=== PATIENT | female | born 1995 | race Caucasian/White ===

== ENCOUNTER → 2020-08-07 12:20 | Outpatient (BNVA) | payer SELFPAY | PROVIDERS: Family Provider Family Medicine; PCP Family Medicine; Visit Provider Nurse Practitioner | DX: J02.9 Acute pharyngitis, unspecified (principal) | CPT/HCPCS: 87071; 87880 ==

== ENCOUNTER → 2020-09-12 14:01 | Outpatient (BNVA) | payer SELFPAY | PROVIDERS: Family Provider Family Medicine; PCP Family Medicine; Visit Provider Family Medicine | DX: F41.9 Anxiety disorder, unspecified (principal); F32.9 Major depressive disorder, single episode, unspecified; Z87.891 Personal history of nicotine dependence | CPT/HCPCS: 80053; 84443; 85025 ==

== ENCOUNTER 2020-10-12 19:13 | Emergency (ER) | payer SELFPAY ==
[2020-10-12 19:42] VITALS: BP 114/72; PULSE 82; RESP 18; TEMP 36.2; O2SAT 98; BMI 21.9
[2020-10-12 20:16] LABS: Add Urine Microscopic? YES; Bilirubin Urine Neg (Negative); Blood Urine 2+ (Negative); Glucose Urine UA Norm (Normal); Ketones Urine Negative (Negative); Leukocyte Esterase Urine 2+ (Negative); Nitrate Urine Negative (Negative); Protein Urine Neg (Negative); Urine Color Yellow (Yellow); Urobilinogen Urine Norm (Negative); pH Urine 6 (5-7)
[2020-10-12 20:18] LABS: Add Urine Culture? Yes; Bacteria Urine TRACE /hpf; WBC Urine >100 /hpf (0-5)
[2020-10-12 21:07] VITALS: BP 121/71; PULSE 85; RESP 16; O2SAT 99
[2020-10-12 21:28] LABS: HCG Qualitative Urine. Negative (Negative)
[2020-10-12] MEDS: cefTRIAXone 1,000 MG in sodium chloride 0.9% (plus) 50 ML 100 MG IV (21:28)
--- NOTE | 2020-10-12 21:29 | CTR_ITS ---
PROCEDURE INFORMATION: Exam: CT Abdomen And Pelvis With Contrast Exam date and time: 10/12/2020 9:34 PM Age: 25 years old Clinical indication: Abdominal pain; Localized; Right lower quadrant (rlq); Patient HX: C/O rlq pain x 3 days; Additional info: Rlq tenderness. H/o UTI. R/O appy TECHNIQUE: Imaging protocol: Computed tomography of the abdomen and pelvis with contrast. Radiation optimization: All CT scans at this facility use at least one of these dose optimization techniques: automated exposure control; mA and/or kV adjustment per patient size (includes targeted exams where dose is matched to clinical indication); or iterative reconstruction. Contrast material: OMNI 300; Contrast volume: 95 ml; Contrast route: INTRAVENOUS (IV); COMPARISON: CT abdomen pelvis w con* [id number] 07/01/2015 10:08 AM RADIATION DOSE METRICS: Total DLP (mGy-cm): 953.73 FINDINGS: Lungs: The lung bases are clear. Liver: Unremarkable. Gallbladder and bile ducts: No visible gallstones by CT. No biliary tree dilation. Pancreas: Unremarkable. Spleen: Unremarkable. Adrenal glands: Unremarkable. Kidneys and ureters: Borderline prominence of the right renal pelvis and ureter. Mild wall thickening in the right renal pelvis and right ureter. Subtle 15 mm area of poor/decreased enhancement in the lower right kidney. While nonspecific, the above findings are suspicious for right pyelonephritis. Please correlate clinically. No perinephric fluid. No visible renal or ureteral calculus. The left kidney appears essentially unremarkable. Stomach and bowel: There are no CT findings to strongly suggest diverticulitis. Appendix: The appendix is upper limit of normal in size with diameter of up to about 6 mm. Probably no significant surrounding inflammatory changes to strongly suggest appendicitis at this time. If appendicitis remains in the differential diagnosis, follow-up scanning may be useful, as clinically directed. Appropriate clinical follow up warranted. Intraperitoneal space: No free air, ascites, or significant bowel distention. Vasculature: No evidence for abdominal aortic aneurysm. Lymph nodes: No retroperitoneal adenopathy. Urinary bladder: Suspect mild to moderate diffuse urinary bladder wall thickening. Evaluation is somewhat limited, as the bladder is not well distended. While nonspecific, this could indicate evidence for cystitis. Please correlate clinically. No visible calculus in the urinary bladder. Reproductive: The right ovary contains a 20 mm dominant follicle versus small cyst. Significance uncertain/unlikely due to relatively small small size. Small amount of cul-de-sac fluid. Bones/joints: No significant acute finding. Soft tissues: No significant acute finding. CT/CT abdomen pelvis w con* [id number] IMPRESSION: 1. Findings suspicious for right pyelonephritis, see above discussion. 2. Suspected urinary bladder wall thickening, possibly secondary to cystitis. 3. Borderline size of the appendix, please see detailed discussion above. 4. The right ovary contains a 20 mm dominant follicle versus small cyst. Significance uncertain/unlikely due to relatively small small size. Small amount of cul-de-sac fluid. 5. Other findings discussed above. Radiation Dose CTDIVOL = (mGy): DLP = 953.73 (mGy-cm)
[2020-10-12] MEDS: iohexol 300 mg/mL 100 mL Btl IV (21:46)
[2020-10-12 21:57] LABS: Basophils % 0.4 %; Eosinophils # 0.2 10^3/uL (0.0-0.8); Eosinophils % 2.4 %; Hematocrit 38.2 % (37.0-47.0); Hemoglobin 12.5 g/dL (11.5-15.3); Lymphocytes # 2.9 10^3/uL (0.8-4.8); Lymphocytes % 30.9 %; Mean Corpuscular HGB Conc 32.7 g/dL (30.0-36.0); Mean Corpuscular Hemoglobin 31.6 pg (28.0-34.0); Mean Corpuscular Volume 96.5 fL (81-99); Mean Platelet Volume 10.8 fL (7.4-10.4); Monocytes # 0.8 10^3/uL (0.2-0.9); Monocytes % 8.4 %; Neutrophils # 5.46 10^3/uL (1.8-7.7); Neutrophils % 57.6 %; Nucleated Red Blood Cells % 0 %; Platelet Count 192 10^3/cmm (130-400); Red Blood Count 3.96 10^6/uL (4.1-5.3); Red Cell Distribution Width 12.3 % (12.1-15.1); White Blood Count 9.5 10^3/uL (4.0-10.0)
[2020-10-12] MEDS: sodium chloride 0.9% 1,000 ML 999 ML IV (22:01)
[2020-10-12 22:03] VITALS: BP 111/44; PULSE 73; RESP 16; O2SAT 97
[2020-10-12 22:18] LABS: Lactate (Lactic Acid level) 0.7 mmol/L (0.5-2.2)
[2020-10-12 22:19] LABS: Alanine Aminotransferase 14 U/L (0-33); Albumin Level 3.9 g/dL (3.5-5.2); Alkaline Phosphatase 92 IU/L (35-105); Anion Gap 13.8 (5-19); Aspartate Amino Transferase 15 U/L (0-32); Blood Urea Nitrogen 11 mg/dL (6-20); Calcium 8.4 mg/dL (8.5-10.5); Carbon Dioxide 23 mmol/L (22-29); Chloride 103 mmol/L (98-107); Glomerular Filtration Rate 151.6 mL/min (90-130); Glucose 83 mg/dL (65-115); Lipase 33 U/L (13-60); Osmolality Calculated 281 mOsm/kg (285-295); Potassium 3.8 mmol/L (3.5-5.1); Sodium 136 mmol/L (136-145); Total Bilirubin 0.2 mg/dL (0.15-1.2); Total Protein 6.9 g/dL (6.6-8.7)
--- NOTE | 2020-10-12 22:43 | W.ED.ABDPA2 ---
HPI - Abdominal Pain General: Chief Complaint: Abdominal Pain Stated Complaint: RLQ ABD PAIN Time Seen by Provider: 10/12/20 20:51 History of Present Illness: HPI narrative: The patient is a 25-year-old female with past medical history UTIs who comes to the ER complaining of suprapubic and right lower quadrant pain as well as some mild right flank pain. Its been giving her pain for the past 4 days and continues to worsen and she is worried because this is the worst pain that she has had with a urinary tract infection and is worried it could be her appendix. Denies fevers. Admits urinary symptoms MD elicited complaint: abdominal pain Pertinent past history: past UTI Onset (ago): day(s) (4) Pain Consistency: constant Location: None Severity: moderate Radiation: R flank Migration to: R flank Relieving factors: nothing Associated Symptoms: Reports dysuria; Denies GI cramping and diarrhea Related Data: Date of Last Menstrual Period: 09/13/20 Review of Systems General: Reports: 10 or more systems reviewed and unremarkable except in HPI and below Const: Denies: fatigue Eyes: Denies: change in vision, blurry vision or eye redness ENMT: Denies: throat pain, swelling of lips/tongue, ear or mastoid pain or nasal congestion Card: Denies: chest pain, palpitations, irregular heart rhythm, edema, dyspnea on exertion or orthopnea Resp: Denies: dyspnea, productive cough or non-productive cough GI: Reports: abdominal pain; Denies: diarrhea or GI cramping : Reports: flank pain, dysuria and urinary frequency Musc: Denies: neck pain, back pain, extremity pain, joint pain, joint redness, limited range of motion or muscle weakness Skin/Breast: Denies: rash, pruritus, erythema, skin pain or skin tenderness Neuro: Denies: headache(s), numbness in extremities, weakness in extremities, sensory changes, difficulty walking, dizziness, confusion or Slurred speech present Psych: Denies: anxiety or depression Endo: Denies: polyuria All/Imm: Denies: urticaria, throat swelling or tongue swelling PFSH ED PFSH: Medical History Anxiety and depression Surgical History No pertinent past surgical history Family History Other CAD (coronary artery disease) Cancer Diabetes Social History Smoking and tobacco status: former smoker Alcohol intake: current Alcohol intake frequency: 3 or more drinks per day Alcohol type: wine Female Reproductive History: Date of last menstrual period: 09/13/20 Physical Exam Const: COMMON NORMALS: no acute distress, average body habitus, patient oriented x3, no limitations, healthy appearing, alert and well nourished GENERAL APPEARANCE: cooperative, comfortable, well kempt and well developed ORIENTATION/CONSCIOUSNESS: Yes awake, Yes oriented to person, Yes oriented to place and Yes oriented to time HENMT: COMMON NORMALS: normocephalic, external ears normal and Normal external nose present HEAD & SCALP: normal to inspection and normocephalic NOSE: Normal external nose present EXTERNAL EAR: Yes external ears normal MOUTH: Normal oral and palatal mucosa present THROAT: posterior oropharynx normal Eye: COMMON NORMALS: Equal, round and reactive pupils present and EOMs intact bilaterally GENERAL EYE: appearance normal, both eyes and all related structures PUPIL: Yes Equal, round and reactive pupils present Neck/C-Spine: COMMON NORMALS: full ROM, no lymphadenopathy, no meningeal signs and no JVD GENERAL: Yes normal visual inspection Lymph: LYMPHATIC: no lymphadenopathy noted Chest: COMMONS NORMALS: normal inspection of the chest and normal palpation of entire chest wall Resp: COMMON NORMALS: normal respiratory effort, No retractions, No use of accessory muscles, clear to auscultation bilaterally and percussion normal EFFORT & INSPECTION: Yes able to speak in complete sentences AUSCULTATION: clear to auscultation bilaterally PERCUSSION: percussion normal Cardio: COMMON NORMALS: no JVD, regular rate, regular rhythm, S1 normal heart sound present, S2 normal heart sound present and Peripheral pulses 2+ throughout RATE: regular rate RHYTHM: regular rhythm HEART SOUNDS: S1 normal heart sound present and S2 normal heart sound present PERIPHERAL PULSES: Peripheral pulses 2+ throughout GI: COMMON NORMALS: Normal to inspection, nondistended, normoactive bowel sounds present, Soft to palpation and no masses INSPECTION: Yes normal to inspection PALPATION: Yes Soft to palpation and Yes Tenderness to palpation present (GI) GI image (female): 1. Suprapubic and right lower quadrant tenderness radiating to her right flank. Soft. No rebound tenderness. : BLADDER/KIDNEY EXAM: Yes CVA tenderness on the right Back/Pelvis: COMMON NORMALS: thoracic and lumbar spine normal to inspection, no thoracic nor lumbar tenderness and thoraco-lumbar ROM normal Extremity: COMMON NORMALS: normal to inspection, full ROM, capillary refill normal, no joint enlargement and no pedal edema GENERAL: Yes normal exam except as noted Neuro: COMMON NORMALS: patient oriented x3, CN's II-XII intact bilaterally, moves all extremities, no focal motor deficits, no sensory deficits noted and gait normal SENSORIUM/ORIENTATION: Yes alert, Yes oriented to person, Yes oriented to place and Yes oriented to time MENINGEAL SIGNS: Yes no meningeal signs Psych: COMMON NORMALS: mental status grossly normal, Normal thought process present, cooperative, normal affect and speech normal APPEARANCE: Yes well kempt ATTITUDE: Yes calm SPEECH: Yes normal speech THOUGHT PROCESS: Normal thought process present Skin: COMMON NORMALS: no rashes or lesions noted GENERAL SKIN EXAM: no rashes or lesions noted Course Vital Signs: Vital signs: Vital Signs Temperature 97.1 F L 10/12/20 19:42 Pulse Rate 73 10/12/20 22:03 Respiratory Rate 16 10/12/20 22:03 Blood Pressure 111/44 10/12/20 22:03 Pulse Oximetry 97 10/12/20 22:03 MDM - Abdominal Pain MDM Narrative: Medical decision making narrative: The patient's urine has lots of white blood cells which are consistent with her symptoms of a urinary tract infection and likely pyelonephritis. CT shows Rhys and cystitis which is also consistent with her symptoms. It comments that her appendix while not acutely inflamed is large in size and recommends repeat imaging if she continues to have pain. She was given IV ceftriaxone and IV fluids as well as discharged with Keflex for 14 days. She is instructed to return to the ER if her symptoms worsen or do not get better as she may need a another CT to reevaluate her appendix.. Primary care physician in a couple days to monitor improvement of her symptoms Lab Data: Labs: Lab Results 10/12/20 10/12/20 10/12/20 Range/Units 20:00 20:00 20:00 WBC (4.0-10.0) 10^3/ uL RBC (4.1-5.3) 10^6/u L Hgb (11.5-15.3) g/dL Hct (37.0-47.0) % MCV (81-99) fL MCH (28.0-34.0) pg MCHC (30.0-36.0) g/dL RDW (12.1-15.1) % Plt Count (130-400) 10^3/c mm MPV (7.4-10.4) fL Neut % (Auto) % Lymph % (Auto) % Walton % (Auto) % Eos % (Auto) % Baso % (Auto) % Neut # (Auto) (1.8-7.7) 10^3/u L Lymph # (Auto) (0.8-4.8) 10^3/u L Walton # (Auto) (0.2-0.9) 10^3/u L Eos # (Auto) (0.0-0.8) 10^3/u L Baso # (Auto) (0.0-0.1) 10^3/u L Nucleated RBC % (a uto) % Nucleated RBCs # /100WBC Sodium (136-145) mmol/L Potassium (3.5-5.1) mmol/L Chloride (98-107) mmol/L Carbon Dioxide (22-29) mmol/L Anion Gap (5-19) BUN (6-20) mg/dL Creatinine (0.5-0.9) mg/dL GFR Calculation (90-130) mL/min Glucose (65-115) mg/dL Calculated Osmolal ity (285-295) mOsm/k g Lactate (0.5-2.2) mmol/L Calcium (8.5-10.5) mg/dL Total Bilirubin (0.15-1.2) mg/dL AST (0-32) U/L ALT (0-33) U/L Alkaline Phosphata se (35-105) IU/L Total Protein (6.6-8.7) g/dL Albumin (3.5-5.2) g/dL Globulin (1.3-4.6) g/dL Lipase (13-60) U/L HCG, Qual Negative (Negative) Urine Color Yellow (Yellow) Urine Appearance Sl cloudy A (CLEAR) Urine pH 6 (5-7) Ur Specific Gravit y 1.010 (1.005-1.030) Urine Protein Neg (Negative) Urine Glucose (UA) Norm (Normal) Urine Ketones Negative (Negative) Urine Blood 2+ H (Negative) Urine Nitrate Negative (Negative) Urine Bilirubin Neg (Negative) Urine Urobilinogen Norm (Negative) mg/dL Ur Leukocyte Netta ase 2+ H (Negative) Urine RBC 5-10 H (0-2) /hpf Urine WBC >100 H (0-5) /hpf Ur Squamous Epith Cells 5-10 H (0-5) /hpf Amorphous Sediment Not Reportable Urine Bacteria Trace (NONE) /hpf Urine HCG, Qual Negative (Negative) 10/12/20 10/12/20 10/12/20 Range/Units 21:28 21:28 21:28 WBC 9.5 (4.0-10.0) 10^3/ uL RBC 3.96 L (4.1-5.3) 10^6/u L Hgb 12.5 (11.5-15.3) g/dL Hct 38.2 (37.0-47.0) % MCV 96.5 (81-99) fL MCH 31.6 (28.0-34.0) pg MCHC 32.7 (30.0-36.0) g/dL RDW 12.3 (12.1-15.1) % Plt Count 192 (130-400) 10^3/c mm MPV 10.8 H (7.4-10.4) fL Neut % (Auto) 57.6 % Lymph % (Auto) 30.9 % Walton % (Auto) 8.4 % Eos % (Auto) 2.4 % Baso % (Auto) 0.4 % Neut # (Auto) 5.46 (1.8-7.7) 10^3/u L Lymph # (Auto) 2.9 (0.8-4.8) 10^3/u L Walton # (Auto) 0.8 (0.2-0.9) 10^3/u L Eos # (Auto) 0.2 (0.0-0.8) 10^3/u L Baso # (Auto) 0.0 (0.0-0.1) 10^3/u L Nucleated RBC % (a uto) 0 % Nucleated RBCs # 0.0 /100WBC Sodium 136 (136-145) mmol/L Potassium 3.8 (3.5-5.1) mmol/L Chloride 103 (98-107) mmol/L Carbon Dioxide 23 (22-29) mmol/L Anion Gap 13.8 (5-19) BUN 11 (6-20) mg/dL Creatinine 0.5 (0.5-0.9) mg/dL GFR Calculation 151.6 H (90-130) mL/min Glucose 83 (65-115) mg/dL Calculated Osmolal ity 281 L (285-295) mOsm/k g Lactate 0.7 (0.5-2.2) mmol/L Calcium 8.4 L (8.5-10.5) mg/dL Total Bilirubin 0.2 (0.15-1.2) mg/dL AST 15 (0-32) U/L ALT 14 (0-33) U/L Alkaline Phosphata se 92 (35-105) IU/L Total Protein 6.9 (6.6-8.7) g/dL Albumin 3.9 (3.5-5.2) g/dL Globulin 3.0 (1.3-4.6) g/dL Lipase 33 (13-60) U/L HCG, Qual (Negative) Urine Color (Yellow) Urine Appearance (CLEAR) Urine pH (5-7) Ur Specific Gravit y (1.005-1.030) Urine Protein (Negative) Urine Glucose (UA) (Normal) Urine Ketones (Negative) Urine Blood (Negative) Urine Nitrate (Negative) Urine Bilirubin (Negative) Urine Urobilinogen (Negative) mg/dL Ur Leukocyte Netta ase (Negative) Urine RBC (0-2) /hpf Urine WBC (0-5) /hpf Ur Squamous Epith Cells (0-5) /hpf Amorphous Sediment Urine Bacteria (NONE) /hpf Urine HCG, Qual (Negative) Discharge Plan Discharge Patient Disposition: Home Clinical Impression: Pyelonephritis, UTI (urinary tract infection) Condition: Stable Prescriptions: New cephalexin 500 mg capsule 500 mg PO BID 14 Days Qty: 28 RF: 0 No Action sertraline [Zoloft] 25 mg tablet 25 mg PO DAILY Qty: 90 RF: 0 hydroxyzine HCl 25 mg tablet 25 mg PO .HS Qty: 30 RF: 0 Discharge Orders: Discharge ED (Routine); Ordered 10/12/20 Ordered By: Diony Muro Referrals: Christiane Byrne DO [Primary Care Provider] - Discharge Diet: Advance as tolerated Discharge Activity: Resume usual activity Patient Instructions: Acute Pyelonephritis (ED), Opioid Safety Activity Restrictions/Additional Instructions: You have a urinary tract infection that has started to track up to your right kidney and have a kidney infection as well. We have given you IV antibiotics and fluids in the ER to start treatment of this and we will discharge you with Keflex pills for 2 weeks. Please take them as directed and drink lots of fluids. The abdominal CT also mentions that your appendix is large in size. It is not inflamed however if your symptoms do not improve or they worsen please return to the ER and we will check you again for appendicitis. The antibiotic should start working quickly so your symptoms should begin to improve in the next day or 2 however if they do not return to the ER. Follow-up with your primary care physician in a couple days to monitor improvement of your symptoms Coding Level of Care Code ED Calibration Technician for Leonela Madrigal
[2020-10-12 22:56] VITALS: BP 119/67; PULSE 82; RESP 18; O2SAT 99
== END 2020-10-12 22:57 | disposition home or self-care (01) ==
PROVIDERS: Nurse Practitioner Family; Emergency Provider Family Medicine; PCP Family Medicine
DX: N39.0 Urinary tract infection, site not specified (principal); N12 Tubulo-interstitial nephritis, not specified as acute or chronic; Z87.891 Personal history of nicotine dependence
CPT/HCPCS: 74177; 80053; 81001; 81025; 83605; 83690; 85025; 87086; 96365; 99284; J0696; J7030; Q9967

== ENCOUNTER 2020-10-15 21:36 | Emergency (ER) | payer SELFPAY ==
[2020-10-15 21:40] VITALS: BP 138/75; PULSE 78; PULSE 90; RESP 18; TEMP 36.8; O2SAT 99; BMI 21.2
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
[2020-10-15 22:00] VITALS: BP 119/67; PULSE 73; O2SAT 98
[2020-10-15 22:13] VITALS: RESP 18; O2SAT 96
[2020-10-15] MEDS: morphine 4 mg/mL SDV 1 mL IVP (22:13)
[2020-10-15] MEDS: ondansetron 2 mg/ML SDV 2 mL 4 MG IVP (22:13)
[2020-10-15] MEDS: sodium chloride 0.9% 1,000 ML 999 ML IV (22:13)
[2020-10-15 22:15] LABS: Basophils % 0.3 %; Eosinophils # 0.3 10^3/uL (0.0-0.8); Eosinophils % 3.5 %; Hematocrit 40.8 % (37.0-47.0); Hemoglobin 13.2 g/dL (11.5-15.3); Lymphocytes # 2.6 10^3/uL (0.8-4.8); Lymphocytes % 34.7 %; Mean Corpuscular HGB Conc 32.4 g/dL (30.0-36.0); Mean Corpuscular Hemoglobin 31.1 pg (28.0-34.0); Mean Corpuscular Volume 96.2 fL (81-99); Mean Platelet Volume 10.5 fL (7.4-10.4); Monocytes # 0.6 10^3/uL (0.2-0.9); Neutrophils # 4.02 10^3/uL (1.8-7.7); Neutrophils % 53.2 %; Nucleated Red Blood Cells % 0 %; Platelet Count 230 10^3/cmm (130-400); Red Blood Count 4.24 10^6/uL (4.1-5.3); Red Cell Distribution Width 11.9 % (12.1-15.1); White Blood Count 7.5 10^3/uL (4.0-10.0)
[2020-10-15] MEDS: ciprofloxacin 400 MG/200 ML PREMIX 200 MG IV (22:29)
[2020-10-15 22:31] LABS: Alanine Aminotransferase 15 U/L (0-33); Albumin Level 4.1 g/dL (3.5-5.2); Alkaline Phosphatase 90 IU/L (35-105); Aspartate Amino Transferase 14 U/L (0-32); Blood Urea Nitrogen 12 mg/dL (6-20); Calcium 9.5 mg/dL (8.5-10.5); Carbon Dioxide 25 mmol/L (22-29); Chloride 103 mmol/L (98-107); Globulin 3.3 g/dL (1.3-4.6); Glomerular Filtration Rate 151.6 mL/min (90-130); Glucose 93 mg/dL (65-115); Lipase 41 U/L (13-60); Osmolality Calculated 285 mOsm/kg (285-295); Sodium 138 mmol/L (136-145); Total Bilirubin 0.2 mg/dL (0.15-1.2); Total Protein 7.4 g/dL (6.6-8.7)
[2020-10-15 22:38] LABS: HCG Qualitative Urine. Negative (Negative)
[2020-10-15 22:56] LABS: Add Urine Microscopic? NO; Charge for UA Resulting for Rev
[2020-10-15 22:57] LABS: Urine Appearance Clear (CLEAR); Urine Color Yellow (Yellow); pH Urine 5 (5-7)
[2020-10-15 22:58] LABS: Bilirubin Urine Neg (Negative); Blood Urine Neg (Negative); Glucose Urine UA Norm (Normal); Ketones Urine Negative (Negative); Leukocyte Esterase Urine Negative (Negative); Nitrate Urine Negative (Negative); Protein Urine Neg (Negative); Urobilinogen Urine Norm (Negative)
[2020-10-15 23:00] VITALS: BP 145/94; PULSE 68; O2SAT 98
--- NOTE | 2020-10-15 23:05 | CTR_ITS ---
PROCEDURE INFORMATION: Exam: CT Abdomen And Pelvis With Contrast Exam date and time: 10/15/2020 11:06 PM Age: 25 years old Clinical indication: Abdominal pain; Generalized; Patient HX: Worsening abd pain. Diagnosed with UTI and pyelonephritis earlier this week. TECHNIQUE: Imaging protocol: Computed tomography of the abdomen and pelvis with contrast. Radiation optimization: All CT scans at this facility use at least one of these dose optimization techniques: automated exposure control; mA and/or kV adjustment per patient size (includes targeted exams where dose is matched to clinical indication); or iterative reconstruction. Contrast material: OMNI 300; Contrast volume: 95 ml; Contrast route: INTRAVENOUS (IV); COMPARISON: CT abdomen pelvis w con* [id number] 10/12/2020 9:59 PM RADIATION DOSE METRICS: Total DLP (mGy-cm): 1007.26 FINDINGS: Liver: Normal. No mass. Gallbladder and bile ducts: Normal. No calcified stones. No ductal dilation. Pancreas: Normal. No ductal dilation. Spleen: Normal. No splenomegaly. Adrenal glands: Normal. No mass. Kidneys and ureters: Right-sided proximal collecting system urothelial enhancement is redemonstrated, but improved prior. No renal or perirenal abscess. Grossly unremarkable enhancement of the kidneys. Negative for hydronephrosis. Negative for renal stones. Stomach and bowel: Unremarkable. No obstruction. No mucosal thickening. Appendix: No evidence of appendicitis. Intraperitoneal space: Unremarkable. No free air. No significant fluid collection. Vasculature: Unremarkable. No abdominal aortic aneurysm. Lymph nodes: Unremarkable. No enlarged lymph nodes. Urinary bladder: Unremarkable as visualized. Reproductive: Unremarkable as visualized. Bones/joints: Unremarkable. No acute fracture. Soft tissues: Unremarkable. CT/CT abdomen pelvis w con* [id number] IMPRESSION: Mild residual increase in right proximal collecting system urothelial enhancement which may represent sequela of pyelonephritis. No complication seen. Improvement from prior. Radiation Dose CTDIVOL = (mGy): DLP = 1007.26 (mGy-cm)
[2020-10-15] MEDS: iohexol 300 mg/mL 100 mL Btl IV (23:20)
[2020-10-16] VITALS: BP 134/58; PULSE 65; O2SAT 98
== END 2020-10-16 00:45 | disposition home or self-care (01) ==
PROVIDERS: Emergency Provider Emergency Medicine; PCP Family Medicine
DX: N12 Tubulo-interstitial nephritis, not specified as acute or chronic (principal); Z87.891 Personal history of nicotine dependence
CPT/HCPCS: 74177; 80053; 81003; 81025; 83690; 85025; 96361; 96374; 96375; 99284; J0744; J2270; J2405; J7030; Q9967

== ENCOUNTER 2020-11-20 18:41 | Emergency (ER) | payer SELFPAY ==
[2020-11-20 18:56] VITALS: BP 118/76; PULSE 89; RESP 18; TEMP 36.3; O2SAT 98; BMI 22.5
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
[2020-11-20] MEDS: HYDROcodone-acetaminophen 7.5-325 mg Tablet 1 TAB PO (19:14)
[2020-11-20 19:44] VITALS: BP 111/71; PULSE 97; RESP 16; O2SAT 99
[2020-11-20 19:45] VITALS: BP 111/71; PULSE 87; RESP 16; O2SAT 99
== END 2020-11-20 19:49 | disposition home or self-care (01) ==
PROVIDERS: Emergency Provider Emergency Medicine; PCP Family Medicine
DX: S13.4XXA Sprain of ligaments of cervical spine, initial encounter (principal); V89.2XXA Person injured in unspecified motor-vehicle accident, traffic, initial encounter
CPT/HCPCS: 70450; 72125; 99283

== ENCOUNTER → 2020-12-25 15:23 | Outpatient (BNVA) | payer SELFPAY | PROVIDERS: PCP Family Medicine; Visit Provider Obstetrics & Gynecology | DX: Z12.4 Encounter for screening for malignant neoplasm of cervix (principal); N89.8 Other specified noninflammatory disorders of vagina; N92.6 Irregular menstruation, unspecified; N72 Inflammatory disease of cervix uteri; N39.0 Urinary tract infection, site not specified | CPT/HCPCS: 87481; 87512; 87798; 87799; 88175 ==

== ENCOUNTER 2021-01-12 21:29 | Inpatient (IN) | payer SELFPAY ==
[2021-01-12 21:41] VITALS: BP 114/57; PULSE 111; RESP 16; TEMP 36.6; O2SAT 95; BMI 23.5
--- NOTE | 2021-01-12 21:47 | ECG_ITS ---
[facility] Test Date: 2021-01-12 Pat Name: Tamela Ruff Department: Room: Gender: Female [employer] Spec[employer]: : 1995 Requested By: Frederick Huitron Order Number: [id number] Rasmussen MD: Cathleen Miller M.D. Measurements Intervals [place] Rate: 89 P: 80 RI: 167 QRS: 67 QRSD: 93 T: 32 QT: 342 QTc: 416 Interpretive Statements SINUS RHYTHM WITH SINUS ARRHYTHMIA POSSIBLE LEFT ATRIAL ENLARGEMENT [-0.1mV P WAVE IN V1/V2] POSSIBLE RIGHT VENTRICULAR CONDUCTION DELAY [RSR (QR) IN V1/V2] WARNING: DATA QUALITY MAY AFFECT INTERPRETATION No previous ECG available for comparison Electronically Signed On 01-13-2021 16:44:26 CDT by Cathleen Miller M.D. [id number]
--- NOTE | 2021-01-12 21:59 | ED_ITS ---
HPI - Psych General: Chief Complaint: Psychiatric Symptoms Stated Complaint: SI Time Seen by Provider: 01/12/21 21:48 History of Present Illness: HPI Narrative: 25-year-old female comes in today for complaints of worsening thoughts of suicide and mood swings. Patient reports since her grandfather had in June she has had more dark thoughts and thoughts of suicide. Patient was put on some sertraline 25 mg which helped some for patient to be able to sleep and start a routine sleep schedule. Patient had stopped the sertraline about 3 weeks ago after her prescription had ran out. Patient reports since then she has had more mood swings and more th oughts of suicide. Patient reports that she will feel very elevated in her mood then become very depressed and then have episodes of irritability and striking out other individuals. Patient does have a history of cutting in the past. Patient reports no specific plan for suicide but states that she would do what ever was available in order to hurt herself. Patient comes in [facility] seeking admission to the stress unit due to these thoughts of suicide and concern for injuring herself. Patient denies any drug use such as marijuana, methamphetamines, or heroin. Patient does occasionally smoke cigarettes and drink alcohol. Patient at this time is on antibiotics doxycycline and metronidazole for a female infection . Patient takes some One-A-Day vitamins. Patient also reports that she has happy with herself that she was able to get back on a more routine sleep schedule and has been trying to eat more healthy. complaint: suicidal ideation Onset (ago): week(s) Duration: intermittent and getting worse History of same: No Relieving factors: medication Exacerbating factors: none Context: not taking psychiatric medications Associated psychiatric symptoms: depression, suicidal ideation and racing thoughts Associated symptoms: Reports depression, suicidal ideation and racing thoughts Treatments prior to arrival: none If self harm: admits thoughts of self harm Review of Systems General: Reports: 10 or more systems reviewed and unremarkable except in HPI and below Psych: Reports: depression and suicidal ideation [facility] ED PFS: Medical History (Updated 01/12/21 @ 23:22 by MALENA Mckeon) Anxiety and depression Surgical History No pertinent past surgical history Family History (Updated 12/25/20 @ 14:26 by Analilia Clarke LPN) Family/Other Cancer Maternal Uncle Diabetes Maternal and Paternal aunts and uncles Mother Diabetes Father Diabetes Grandmother Diabetes Paternal Grandfather Diabetes Paternal Denies family history of CAD (coronary artery disease) Clotting disorder Hyperlipidemia Chronic kidney disease (CKD) Hypertension Thyroid disease Stroke Female Reproductive History: Date of last menstrual period: 11/13/20 Physical Exam Const: COMMON NORMALS: no acute distress and patient oriented x3 GENERAL APPEARANCE: cooperative HENMT: COMMON NORMALS: normocephalic, TM's normal bilaterally and Normal external nose present HEAD & SCALP: normal to inspection and normocephalic NOSE: Normal external nose present TYMPANIC MEMBRANE: TM's normal bilaterally MOUTH: Normal oral and palatal mucosa present THROAT: posterior oropharynx normal Eye: GENERAL EYE: appearance normal, both eyes and all related structures Neck/C-Spine: COMMON NORMALS: full ROM Lymph: LYMPHATIC: no lymphadenopathy noted Chest: COMMONS NORMALS: normal inspection of the chest Resp: COMMON NORMALS: normal respiratory effort EFFORT & INSPECTION: Yes able to speak in complete sentences Cardio: COMMON NORMALS: regular rate and regular rhythm RATE: regular rate RHYTHM: regular rhythm GI: COMMON NORMALS: non-tender : COMMON NORMALS: Yes no CVA tenderness BLADDER/KIDNEY EXAM: Yes no CVA tenderness Back/Pelvis: COMMON NORMALS: no CVA tenderness and thoracic and lumbar spine normal to inspection Extremity: COMMON NORMALS: normal to inspection Neuro: COMMON NORMALS: patient oriented x3 and moves all extremities Psych: COMMON NORMALS: cooperative Skin: COMMON NORMALS: no rashes or lesions noted GENERAL SKIN EXAM: no r ashes or lesions noted Course ED course: 11:20 PM, laboratory values are back and are normal. Contacted Dr. Olguin, psychiatrist, reviewed case with him he agreed to admission to neuropsychiatric unit for further evaluation and treatment. 11:30 PM, Dr. Huitron was consulted for admission orders to the neurops ychiatric unit. Vital Signs: Vital signs: Vital Signs Temperature 97.9 F 01/12/21 21:41 Pulse Rate 111 H 01/12/21 21:41 Respiratory Rate 16 01/12/21 21:41 Blood Pressure 114/57 01/12/21 21:41 Pulse Oximetry 95 01/12/21 21:41 MDM - Psych MDM Narrative: Medical decision making narrative: 25-year-old female comes in today for complaints of mood swings, and thoughts of suicide. On exam patient has no signs of significant abnormality. Patient is cooperative. Patient does report episodes of mood elevation and mood depression. Patient also reports episodes of irritability and anger. Patient has no specific plan for suicide although reports that time she feels more prone to hurt herself significantly. Differential diagnosis includes not limited to acute psychosis, major depressive disorder, suicidal ideation. Laboratory values were unremarkable. Patient was very cooperative. Patient agreed to admission to neuropsychiatric unit for suicidal ideation. Patient needs admission for further evaluation and treatment with medication or counseling. Patient was agreeable to admission. Lab Data: Labs: Lab Results 01/12/21 01/12/21 01/12/21 Range/Units 22:14 22:14 22:14 WBC (4.0-10.0) 10^3/ uL RBC (4.1-5.3) 10^6/u L Hgb (11.5-15.3) g/dL Hct (37.0-47.0) % MCV (81-99) fL MCH (28.0-34.0) pg MCHC (30.0-36.0) g/dL RDW (12.1-15.1) % Plt Count (130-400) 10^3/c mm MPV (7.4-10.4) fL Neut % (Auto) % Lymph % (Auto) % Russell % (Auto) % Eos % (Auto) % Baso % (Auto) % Neut # (Auto) (1.8-7.7) 10^3/u L Lymph # (Auto) (0.8-4.8) 10^3/u L Russell # (Auto) (0.2-0.9) 10^3/u L Eos # (Auto) (0.0-0.8) 10^3/u L Baso # (Auto) (0.0-0.1) 10^3/u L Nucleated RBC % (a uto) % Nucleated RBCs # /100WBC Sodium (136-145) mmol/L Potassium (3.5-5.1) mmol/L Chloride (98-107) mmol/L Carbon Dioxide (22-29) mmol/L Anion Gap (5-19) BUN (6-20) mg/dL Creatinine (0.5-0.9) mg/dL GFR Calculation (90-130) mL/min Glucose (65-115) mg/dL Calculated Osmolal ity (285-295) mOsm/k g Calcium (8.5-10.5) mg/dL Total Bilirubin (0.15-1.2) mg/dL AST (0-32) U/L ALT (0-33) U/L Alkaline Phosphata se (35-105) IU/L Total Protein (6.6-8.7) g/dL Albumin (3.5-5.2) g/dL Globulin (1.3-4.6) g/dL TSH (0.27-4.20) uIU/ mL HCG, Qual Negative (Negative) Urine Color Yellow (Yellow) Urine Appearance Clear (CLEAR) Urine pH 8 H (5-7) Ur Specific Gravit y 1.010 (1.005-1.030) Urine Protein Neg (Negative) Urine Glucose (UA) Norm (Normal) Urine Ketones Negative (Negative) Urine Blood Neg (Negative) Urine Nitrate Negative (Negative) Urine Bilirubin Neg (Negative) Prot Sulfosalicyli c Acd Negative (Negative) Urine Urobilinogen Norm (Negative) mg/dL Ur Leukocyte Netta ase Negative (Negative) Salicylates (3-10) mg/dL Urine Opiates Scre en Negative (Negative) ng/mL Acetaminophen (10-30) ug/mL Ur Barbiturates Sc reen Negative (Negative) ng/mL Ur Phencyclidine S crn Negative (Negative) ng/mL Ur Amphetamines Sc reen Negative (Negative) ng/mL U Benzodiazepines Scrn Negative (Negative) ng/mL Urine Cocaine Scre en Negative (Negative) ng/mL U Marijuana (THC) Screen Negative (Negative) ng/mL Ethyl Alcohol (0-10) mg/dL 01/12/21 01/12/21 Range/Units 22:30 22:30 WBC 9.9 (4.0-10.0) 10^3/ uL RBC 4.35 (4.1-5.3) 10^6/u L Hgb 13.5 (11.5-15.3) g/dL Hct 41.3 (37.0-47.0) % MCV 94.9 (81-99) fL MCH 31.0 (28.0-34.0) pg MCHC 32.7 (30.0-36.0) g/dL RDW 12.5 (12.1-15.1) % Plt Count 220 (130-400) 10^3/c mm MPV 10.4 (7.4-10.4) fL Neut % (Auto) 56.8 % Lymph % (Auto) 32.4 % Russell % (Auto) 7.9 % Eos % (Auto) 2.3 % Baso % (Auto) 0.4 % Neut # (Auto) 5.62 (1.8-7.7) 10^3/u L Lymph # (Auto) 3.2 (0.8-4.8) 10^3/u L Russell # (Auto) 0.8 (0.2-0.9) 10^3/u L Eos # (Auto) 0.2 (0.0-0.8) 10^3/u L Baso # (Auto) 0.0 (0.0-0.1) 10^3/u L Nucleated RBC % (a uto) 0 % Nucleated RBCs # 0.0 /100WBC Sodium 137 (136-145) mmol/L Potassium 3.6 (3.5-5.1) mmol/L Chloride 103 (98-107) mmol/L Carbon Dioxide 23 (22-29) mmol/L Anion Gap 14.6 (5-19) BUN 12 (6-20) mg/dL Creatinine 0.5 (0.5-0.9) mg/dL GFR Calculation 151.6 H (90-130) mL/min Glucose 95 (65-115) mg/dL Calculated Osmolal ity 284 L (285-295) mOsm/k g Calcium 9.3 (8.5-10.5) mg/dL Total Bilirubin 0.2 (0.15-1.2) mg/dL AST 18 (0-32) U/L ALT 14 (0-33) U/L Alkaline Phosphata se 81 (35-105) IU/L Total Protein 7.0 (6.6-8.7) g/dL Albumin 4.3 (3.5-5.2) g/dL Globulin 2.7 (1.3-4.6) g/dL TSH 5.34 H (0.27-4.20) uIU/ mL HCG, Qual (Negative) Urine Color (Yellow) Urine Appearance (CLEAR) Urine pH (5-7) Ur Specific Gravit y (1.005-1.030) Urine Protein (Negative) Urine Glucose (UA) (Normal) Urine Ketones (Negative) Urine Blood (Negative) Urine Nitrate (Negative) Urine Bilirubin (Negative) Prot Sulfosalicyli c Acd (Negative) Urine Urobilinogen (Negative) mg/dL Ur Leukocyte Netta ase (Negative) Salicylates < 0.3 L (3-10) mg/dL Urine Opiates Scre en (Negative) ng/mL Acetaminophen < 5.0 L (10-30) ug/mL Ur Barbiturates Sc reen (Negative) ng/mL Ur Phencyclidine S crn (Negative) ng/mL Ur Amphetamines Sc reen (Negative) ng/mL U Benzodiazepines Scrn (Negative) ng/mL Urine Cocaine Scre en (Negative) ng/mL U Marijuana (THC) Screen (Negative) ng/mL Ethyl Alcohol < 10 (0-10) mg/dL Discharge Plan Discharge Patient Disposition: Admitted As Inpatient Clinical Impression: Suicidal ideation Condition: Stable Coding Level of Care Code ED Cleaner Operator for Leonela Fwjeferson Exam Comprehensive
[2021-01-12 22:26] LABS: Add Urine Microscopic? NO; Charge for UA Resulting for Rev
[2021-01-12 22:31] LABS: Bilirubin Urine Neg (Negative); Blood Urine Neg (Negative); Glucose Urine UA Norm (Normal); Ketones Urine Negative (Negative); Leukocyte Esterase Urine Negative (Negative); Nitrate Urine Negative (Negative); Protein Urine Neg (Negative); Sulfosalicylic Acid Urine Negative (Negative); Urine Appearance Clear (CLEAR); Urine Color Yellow (Yellow); Urobilinogen Urine Norm (Negative); pH Urine 8 (5-7)
[2021-01-12 22:36] LABS: Amphetamines Screen Urine Negative (Negative); Barbiturates Screen Urine Negative (Negative); Benzodiazepines Screen Urine Negative (Negative); Cocaine Screen Urine Negative (Negative); Opiate Screen Urine Negative (Negative); PCP Screen Urine Negative (Negative); THC Screen Urine Negative (Negative)
[2021-01-12 22:44] LABS: Basophils % 0.4 %; Eosinophils # 0.2 10^3/uL (0.0-0.8); Eosinophils % 2.3 %; Hematocrit 41.3 % (37.0-47.0); Hemoglobin 13.5 g/dL (11.5-15.3); Lymphocytes # 3.2 10^3/uL (0.8-4.8); Lymphocytes % 32.4 %; Mean Corpuscular HGB Conc 32.7 g/dL (30.0-36.0); Mean Corpuscular Volume 94.9 fL (81-99); Mean Platelet Volume 10.4 fL (7.4-10.4); Monocytes # 0.8 10^3/uL (0.2-0.9); Monocytes % 7.9 %; Neutrophils # 5.62 10^3/uL (1.8-7.7); Neutrophils % 56.8 %; Nucleated Red Blood Cells % 0 %; Platelet Count 220 10^3/cmm (130-400); Red Blood Count 4.35 10^6/uL (4.1-5.3); Red Cell Distribution Width 12.5 % (12.1-15.1); White Blood Count 9.9 10^3/uL (4.0-10.0)
[2021-01-12 22:45] LABS: HCG Qualitative Urine. Negative (Negative)
[2021-01-12 23:13] LABS: Alanine Aminotransferase 14 U/L (0-33); Albumin Level 4.3 g/dL (3.5-5.2); Alkaline Phosphatase 81 IU/L (35-105); Anion Gap 14.6 (5-19); Aspartate Amino Transferase 18 U/L (0-32); Blood Urea Nitrogen 12 mg/dL (6-20); Calcium 9.3 mg/dL (8.5-10.5); Carbon Dioxide 23 mmol/L (22-29); Chloride 103 mmol/L (98-107); Globulin 2.7 g/dL (1.3-4.6); Glomerular Filtration Rate 151.6 mL/min (90-130); Glucose 95 mg/dL (65-115); Osmolality Calculated 284 mOsm/kg (285-295); Potassium 3.6 mmol/L (3.5-5.1); Sodium 137 mmol/L (136-145); Thyroid Stimulating Hormone 5.34 uIU/mL (0.27-4.20); Total Bilirubin 0.2 mg/dL (0.15-1.2)
[2021-01-12 23:16] LABS: Acetaminophen < 5.0 ug/mL (10-30); Alcohol Level < 10 mg/dL (0-10); Salicylate < 0.3 mg/dL (3-10)
[2021-01-12 23:56] VITALS: BP 111/77; PULSE 87; RESP 15; TEMP 37.1; O2SAT 97
[2021-01-13 00:11] VITALS: BP 112/76; PULSE 91; RESP 20; TEMP 36.5; O2SAT 98
[2021-01-13 06:00] VITALS: BP 103/66; PULSE 74; RESP 16; TEMP 36.6; O2SAT 99
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
[2021-01-13 14:00] VITALS: BP 94/58; PULSE 73; RESP 18; TEMP 36.2; O2SAT 96
[2021-01-13] MEDS: lamoTRIgine 25 mg Tablet PO (18:47)
[2021-01-13 19:45] VITALS: BP 110/63; PULSE 78; RESP 20; TEMP 36.6; O2SAT 99
[2021-01-14 06:00] VITALS: BP 101/60; PULSE 68; RESP 17; TEMP 37; O2SAT 97
[2021-01-14] MEDS: lamoTRIgine 25 mg Tablet PO (08:19)
[2021-01-14 14:00] VITALS: BP 101/66; PULSE 69; RESP 18; TEMP 36.8; O2SAT 98
--- NOTE | 2021-01-14 17:04 | P.PN_ITS ---
Subjective NPU Subjective: Interval history: Tamela presents today with more optimistic about getting better and feels that she already does feel improvement. Once again reviewed the medication and the dosing plan. Once again reviewed the risk for Perkins-Gary syndrome. We discussed evaluating her in the next 24 hours and consider discharge if she continues to demonstrate and feel significant improvement. Mental Status Exam MSE Comments: This is a slender white female in hospital scrubs with adequate grooming. Cooperative with exam in no acute distress. Speech is normal rate and volume. Mood described as feeling better, affect congruent. Thought process organized. Thought content: Patient denied homicidal or suicidal ideation, there were no delusions reported or noted, she denied auditory or visual hallucinations. Attention and concentration were intact and memory appeared reliable but none were formally tested. She is alert and oriented times 3. Insight judgment appear fair and impulse control appears limited, but improving. Vitals/I&O/Wt Last Vital Signs Temp 98.6 F 01/14/21 21:06 Pulse 88 01/14/21 21:06 Resp 20 H 01/14/21 21:06 BP 114/67 01/14/21 21:06 Pulse Ox 99 01/14/21 21:06 Data NPU : 01/12/21 22:30 01/12/21 22:30 A&P Additional A&P Information (1) Suicidal ideation: (2) Frequent UTI: (3) Irregular menses: (4) Dyspareunia: (5) Well woman exam: (6) Former smoker: (7) Anxiety and depression: (8) PTSD (post-traumatic stress disorder): Additional A&P Information This is a 25-year-old white female with a long history of trauma and possible personality disorder who presents endorsing being overwhelmed with dramatic mood swings, suicidality and open to a medication trial. 1. Continue current medication. 2. Continue every 15 minute checks for safety. 3. Encourage individual, group and milieu therapies. 4. Get connected with outpatient services Involuntary Hold Information 96 Hour Hold: 96 Hour Involuntary Admission: No Attestations NPU Medical Necessity Statement*: Inpatient hospitalization is medically necessary and the clinically appropriate intervention at this time. We will monitor medications and make changes as indicated. Likely length of stay 1-3 days. Coding Level of Care Code Acute Communication Engineer for Leonela Madrigal
[2021-01-14 21:06] VITALS: BP 114/67; PULSE 88; RESP 20; TEMP 37; O2SAT 99
[2021-01-15 06:00] VITALS: BP 105/63; PULSE 78; RESP 18; TEMP 36.6; O2SAT 99
[2021-01-15] MEDS: lamoTRIgine 25 mg Tablet PO (07:59)
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
[2021-01-15 11:20] VITALS: BP 105/63; PULSE 78; RESP 18; TEMP 36.6; O2SAT 99
--- NOTE | 2021-01-15 11:23 | PC.NURSE ---
discharge medication Lamictal 100 mg po Daily Qty #30 refill x1 called into [facility] employee pharmacy per Dr. Olguin request. spoke to Aniya the pharmacist
== END 2021-01-15 13:43 | disposition home or self-care (01) | DRG 881 ==
LOC: ER 23:22 → NP 23:42
PROVIDERS: Emergency Medicine; Admitting Provider Psychiatry & Neurology Psychiatry; Emergency Provider Nurse Practitioner Family; PCP Family Medicine; Visit Provider Psychiatry & Neurology Psychiatry
DX: F32.9 Major depressive disorder, single episode, unspecified (principal); R45.851 Suicidal ideations; F41.9 Anxiety disorder, unspecified; F43.10 Post-traumatic stress disorder, unspecified; F17.210 Nicotine dependence, cigarettes, uncomplicated; Z87.440 Personal history of urinary (tract) infections; Z91.5 Personal history of self-harm; Z91.410 Personal history of adult physical and sexual abuse; Z63.8 Other specified problems related to primary support group; Z62.820 Parent-biological child conflict; Z72.89 Other problems related to lifestyle; Z79.2 Long term (current) use of antibiotics
CPT/HCPCS: 80053; 80306; 80307; 81003; 81025; 84443; 85025; 93005; 99285

== ENCOUNTER → 2022-02-26 14:00 | Outpatient (BNVA) | payer SELFPAY | PROVIDERS: PCP Family Medicine; Visit Provider Nurse Practitioner Women's Health | DX: N92.6 Irregular menstruation, unspecified (principal) | CPT/HCPCS: 81025 ==

== ENCOUNTER → 2022-03-09 16:37 | Outpatient (BNVA) | payer SELFPAY | PROVIDERS: PCP Family Medicine; Visit Provider Obstetrics & Gynecology | DX: Z36.87 Encounter for antenatal screening for uncertain dates (principal) | CPT/HCPCS: 76817; 84702 ==

== ENCOUNTER 2022-03-10 21:03 | Emergency (ER) | payer SELFPAY ==
[2022-03-10 23:10] VITALS: BP 112/71; PULSE 77; RESP 16; TEMP 36.8; O2SAT 98; BMI 20.8
== END 2022-03-11 01:54 | disposition left against medical advice (07) ==
LOC: ER 21:06
PROVIDERS: Emergency Provider Family Medicine; PCP Family Medicine
DX: Z53.21 Procedure and treatment not carried out due to patient leaving prior to being seen by health care provider (principal); O26.851 Spotting complicating pregnancy, first trimester; Z3A.01 Less than 8 weeks gestation of pregnancy

== ENCOUNTER → 2022-03-17 08:11 | Outpatient (BNVA) | payer SELFPAY | PROVIDERS: PCP Family Medicine; Visit Provider Obstetrics & Gynecology | DX: O03.9 Complete or unspecified spontaneous abortion without complication (principal) | CPT/HCPCS: 84702 ==

== ENCOUNTER 2022-03-25 08:37 | Outpatient (CLI) | payer SELFPAY ==
[2022-03-25 09:31] LABS: HCG Quantitative 81.39 mIU/mL
== END 2022-03-25 08:38 | disposition home or self-care (01) ==
LOC: LAB 08:38
PROVIDERS: PCP Family Medicine; Visit Provider Obstetrics & Gynecology
DX: O03.9 Complete or unspecified spontaneous abortion without complication (principal)
CPT/HCPCS: 84702

== ENCOUNTER → 2022-04-01 08:05 | Outpatient (BNVA) | payer SELFPAY | PROVIDERS: PCP Family Medicine; Visit Provider Obstetrics & Gynecology | DX: O03.9 Complete or unspecified spontaneous abortion without complication (principal) | CPT/HCPCS: 84702 ==

== ENCOUNTER 2022-04-07 08:25 | Outpatient (CLI) | payer SELFPAY ==
[2022-04-07 09:26] LABS: HCG Quantitative 8.54 mIU/mL
== END 2022-04-07 08:26 | disposition home or self-care (01) ==
LOC: LAB 08:27
PROVIDERS: PCP Family Medicine; Visit Provider Obstetrics & Gynecology
DX: O03.9 Complete or unspecified spontaneous abortion without complication (principal)
CPT/HCPCS: 36415; 84702

== ENCOUNTER → 2022-04-15 08:14 | Outpatient (BNVA) | payer SELFPAY | PROVIDERS: PCP Family Medicine; Visit Provider Obstetrics & Gynecology | DX: O03.9 Complete or unspecified spontaneous abortion without complication (principal); Z3A.00 Weeks of gestation of pregnancy not specified | CPT/HCPCS: 84702 ==

== ENCOUNTER → 2023-05-30 10:33 | Outpatient (BNVA) | payer BC, MEDICAID, SELFPAY | PROVIDERS: PCP Family Medicine; Visit Provider Nurse Practitioner | DX: J02.9 Acute pharyngitis, unspecified (principal); J40 Bronchitis, not specified as acute or chronic | CPT/HCPCS: 87071; 87880 ==

== ENCOUNTER 2023-09-25 16:21 | Emergency (ER) | payer SELFPAY ==
[2023-09-25 16:25] VITALS: BP 114/74; PULSE 92; RESP 17; TEMP 36.6; O2SAT 99; BMI 23.5
--- NOTE | 2023-09-25 16:32 | ED_ITS ---
Documented by User: MALENA Mckeon 09/25/23 18:41 HPI - Abdominal Pain 2 General: Chief Complaint: Abdominal Pain Stated Complaint: dizzy, abd pain Time Seen by Provider: 09/25/23 16:31 History of Present Illness: 28-year-old female comes in today for co mplaints of flank pain and lower abdominal pain for the last 2 days. Patient reports this pain reminds her when she gets a urinary tract infection. Patient appears nontoxic. Patient takes no routine medicines. Patient does vape nicotine and use THC edibles. Patient appears nontoxic. Patient appears in mild to no pain. Patient reports no chronic medical problems. Review of Systems 2 General: Reports: 10 or more systems reviewed and unremarkable except in HPI and below GI: Reports: abdominal pain : Reports: flank pain PFS ED 2 PFSH: Medical History (Updated 09/25/23 @ 18:34 by MALENA Mckeon) Miscarriage No pertinent past medical history neghx: htn,dm,thyroid,dvt/pe PCP: None MDD (major depressive disorder), recurrent, in partial remission Major depressive disorder, recurrent, moderate Reported symptoms cry easily, sweating palms, fatigue, bad dreams, the mind goes blank, difficulty concentrating, trouble to make decisions, trouble remembering, thoughts hard to dismiss, trouble sleeping, easily annoyed and irritability, loss of sexual desire, loss of sexual functioning, nervous feeling, excessive worries and fears, excessive fears of crowds, no interests in things, feeling inferior, change in personality, work difficulties, thoughts of harming self. Frequent UTI Anxiety and depression Surgical History No pertinent past surgical history Family History Family/Other Cancer Maternal Uncle-- Leukemia Diabetes Maternal and Paternal aunts and uncles Mother Diabetes Father Diabetes Grandmother Diabetes Paternal Grandfather Diabetes Paternal Denies family history of Colon cancer Ovarian cancer Hyperlipidemia Breast cancer Hypertension Uterine cancer Thyroid disease Stroke Social History Smoking and tobacco/nicotine status: current every day tobacco/nicotine user (vapes with nicotine) Quit status (tobacco/nicotine): not considering quitting Second hand smoke exposure: No Substance/Drug Use: former Date of last use: thc and pain killers Physical Exam 2 Const: COMMON NORMALS: alert HENMT: COMMON NORMALS: normocephalic HEAD & SCALP: normocephalic Neck/C-Spine: COMMON NORMALS: full ROM Resp: COMMON NORMALS: normal respiratory effort Cardio: COMMON NORMALS: regular rate RATE: regular rate GI: COMMON NORMALS: Soft to palpation PALPATION: Yes Soft to palpation : BLADDER/KIDNEY EXAM: Yes CVA tenderness Back/Pelvis: GENERAL BACK: Yes CVA tenderness Extremity: COMMON NORMALS: normal to inspection Neuro: SENSORIUM/ORIENTATION: Yes alert Skin: COMMON NORMALS: turgor normal GENERAL SKIN EXAM: turgor normal Course 2 Vital Signs: Vital signs: Vital Signs Temperature 97.8 F 09/25/23 16:25 Pulse Rate 85 09/25/23 18:00 Respiratory Rate 17 09/25/23 16:25 Blood Pressure 116/68 09/25/23 17:59 Pulse Oximetry 100 09/25/23 18:00 Oxygen Delivery Me thod Room Air 09/25/23 16:25 MDM - Abdominal Pain Medical Decision Making 28-year-old female comes in today for complaints of flank pain and lower abdominal pain. Patient reports the pain reminds her when she gets a urinary tract infection. Respirations are even. Lungs are clear to auscultation. Abdomen soft with minimal tenderness. Vital signs are normal. Differential diagnosis includes but not limited to renal calculi, gastroenteritis, gastritis, pancreatitis, gallbladder disease, appendicitis unlikely. Urine has had increased red blood cells and leukocyte esterases. CBC had an increase in white blood cell count at 11,000. CMP was unremarkable. CT of the abdomen pelvis was performed to rule out renal calculi no signs of renal calculi or other acute processes were noted. Will treat patient for a cystitis with mild hematuria. Patient was placed on Macrobid 100 mg twice a day for 5 days. Patient agreed to plan of treatment and need for follow-up or return to the ER. Lab Data 09/25/23 16:52 09/25/23 16:52 Labs/Radiology: Radiology Impressions Abdomen/Pelvis CT 09/25/23 17:28 IMPRESSION: 1. No evidence of acute abnormality in the abdomen or pelvis within limitations of a noncontrast exam. Laboratory Results WBC 11.56 10^3/uL (3.29-11.43) H 09/25/23 16:52 RBC 4.32 10^6/uL (3.85-5.65) 09/25/23 16:52 Hgb 13.40 g/dL (11.27-16.99) 09/25/23 16:52 Hct 40.9 % (36-47) 09/25/23 16:52 MCV 94.7 fl (85-98) 09/25/23 16:52 MCH 31.0 pg (27-33) 09/25/23 16:52 MCHC 32.8 g/dL (30-55) 09/25/23 16:52 RDW 12.7 % (12.1-15.1) 09/25/23 16:52 Plt Count 183 10^3/cmm (157-399) 09/25/23 16:52 MPV 10.0 fL (7.4-10.4) 09/25/23 16:52 Neut % (Auto) 72.2 % 09/25/23 16:52 Lymph % (Auto) 17.3 % 09/25/23 16:52 Gilchrist % (Auto) 8.5 % 09/25/23 16:52 Eos % (Auto) 1.5 % 09/25/23 16:52 Baso % (Auto) 0.2 % 09/25/23 16:52 Neut # (Auto) 8.35 10^3/uL (1.8-7.7) H 09/25/23 16:52 Lymph # (Auto) 2.0 10^3/uL (0.8-4.8) 09/25/23 16:52 Gilchrist # (Auto) 1.0 10^3/uL (0.2-0.9) H 09/25/23 16:52 Eos # (Auto) 0.2 10^3/uL (0.0-0.8) 09/25/23 16:52 Baso # (Auto) 0.0 10^3/uL (0.0-0.1) 09/25/23 16:52 Nucleated RBC % (auto) 0 % 09/25/23 16:52 Nucleated RBCs # 0.0 /100WBC 09/25/23 16:52 Sodium 138 mmol/L (136-145) 09/25/23 16:52 Potassium 3.9 mmol/L (3.5-5.1) 09/25/23 16:52 Chloride 105 mmol/L (98-107) 09/25/23 16:52 Carbon Dioxide 23 mmol/L (22-29) 09/25/23 16:52 Anion Gap 13.9 (5-19) 09/25/23 16:52 BUN 11 mg/dL (6-20) 09/25/23 16:52 Creatinine 0.5 mg/dL (0.5-0.9) 09/25/23 16:52 GFR Calculation 148.0 mL/min (90-130) H 09/25/23 16:52 Glucose 100 mg/dL (65-115) 09/25/23 16:52 Calculated Osmolality 285 mOsm/kg (285-295) 09/25/23 16:52 Calcium 9.2 mg/dL (8.5-10.5) 09/25/23 16:52 Total Bilirubin 0.4 mg/dL (0.15-1.2) 09/25/23 16:52 AST 12 U/L (0-32) 09/25/23 16:52 ALT 10 U/L (0-33) 09/25/23 16:52 Alkaline Phosphatase 81 U/L (35-105) 09/25/23 16:52 Total Protein 7.6 g/dL (6.6-8.7) 09/25/23 16:52 Albumin 3.9 g/dL (3.5-5.2) 09/25/23 16:52 Globulin 3.7 g/dL (1.3-4.6) 09/25/23 16:52 Lipase 38 U/L (13-60) 09/25/23 16:52 HCG, Qual Negative (Negative) 09/25/23 16:52 Urine Color Yellow (Yellow) 09/25/23 16:55 Urine Appearance Clear (CLEAR) 09/25/23 16:55 Urine pH 5 (5-7) 09/25/23 16:55 Ur Specific [place] 1.025 (1.005-1.030) 09/25/23 16:55 Urine Protein Neg (Negative) 09/25/23 16:55 Urine Glucose (UA) Norm (Normal) 09/25/23 16:55 Urine Ketones 1+ (Negative) H 09/25/23 16:55 Urine Blood 3+ (Negative) H 09/25/23 16:55 Urine Nitrate Negative (Negative) 09/25/23 16:55 Urine Bilirubin 1+ (Negative) H 09/25/23 16:55 Urine Urobilinogen 1 mg/dL (Negative) H 09/25/23 16:55 Ur Leukocyte Esterase Negative (Negative) 09/25/23 16:55 Urine RBC 0-4 /hpf (0-2) H 09/25/23 16:55 Urine WBC None /hpf (0-5) 09/25/23 16:55 Ur Squamous Epith Cells 0-4 /hpf (0-5) H 09/25/23 16:55 Amorphous Sediment Not Reportable 09/25/23 16:55 Urine Bacteria 1+ /hpf (NONE) H 09/25/23 16:55 Urine Mucus 2+ /hpf 09/25/23 16:55 All radiology interpretation(s) finalized by discharge Discharge Plan Discharge Patient Disposition: Home Clinical Impression: Cystitis Condition: Stable Prescriptions: New Macrobid 100 mg capsule 100 mg PO BID 5 Days Qty: 9 0RF Rx Instructions: must administer with a meal/food No Action doxycycline hyclate 100 mg tablet 100 mg PO BID 7 Days Qty: 14 0RF albuterol sulfate [Ventolin HFA] 90 mcg/actuation HFA aerosol inhaler 2 puff inhalation Q4H PRN (Reason: shortness of breath or wheezing) Qty: 8.5 0RF Discharge Orders: Discharge ED (Routine); Ordered 09/25/23 Ordered By: Praful Carranza Referrals: Christiane Byrne DO [Primary Care Provider] - Discharge Diet: Usual diet Discharge Activity: Increase activity as tolerated Patient Instructions: Urinary Tract Infection in Women (ED) Activity Restrictions/Additional Instructions: Drink plenty of fluids. Take antibiotic as directed. Follow-up with primary care in 3 days for recheck. Return to ED for new concerns. Coding Level of Care Code ED Lip Reading Teacher for Chg Fwd Documented by User: Lito LuuDO 09/25/23 18:42 HPI - Abdominal Pain 2 General: Chief Complaint: Abdominal Pain Stated Complaint: dizzy, abd pain Time Seen by Provider: 09/25/23 16:31 History of Present Illness: 28-year-old female comes in today for co mplaints of flank pain and lower abdominal pain for the last 2 days. Patient reports this pain reminds her when she gets a urinary tract infection. Patient appears nontoxic. Patient takes no routine medicines. Patient does vape nicotine and use THC edibles. Patient appears nontoxic. Patient appears in mild to no pain. Patient reports no chronic medical problems. This patient was originally seen by MALENA Vo.? I agree with his history, evaluation, and treatment. [facility] ED 2 PFS: Medical History (Updated 09/25/23 @ 18:34 by MALENA Mckeon) Miscarriage No pertinent past medical history neghx: htn,dm,thyroid,dvt/pe PCP: None MDD (major depressive disorder), recurrent, in partial remission Major depressive disorder, recurrent, moderate Reported symptoms cry easily, sweating palms, fatigue, bad dreams, the mind goes blank, difficulty concentrating, trouble to make decisions, trouble remembering, thoughts hard to dismiss, trouble sleeping, easily annoyed and irritability, loss of sexual desire, loss of sexual functioning, nervous feeling, excessive worries and fears, excessive fears of crowds, no interests in things, feeling inferior, change in personality, work difficulties, thoughts of harming self. Frequent UTI Anxiety and depression Surgical History No pertinent past surgical history Family History Family/Other Cancer Maternal Uncle-- Leukemia Diabetes Maternal and Paternal aunts and uncles Mother Diabetes Father Diabetes Grandmother Diabetes Paternal Grandfather Diabetes Paternal Denies family history of Colon cancer Ovarian cancer Hyperlipidemia Breast cancer Hypertension Uterine cancer Thyroid disease Stroke Social History Smoking and tobacco/nicotine status: current every day tobacco/nicotine user (vapes with nicotine) Quit status (tobacco/nicotine): not considering quitting Second hand smoke exposure: No Substance/Drug Use: former Date of last use: thc and pain killers Course 2 Vital Signs: Vital signs: Vital Signs Temperature 97.8 F 09/25/23 16:25 Pulse Rate 85 09/25/23 18:00 Respiratory Rate 17 09/25/23 16:25 Blood Pressure 116/68 09/25/23 17:59 Pulse Oximetry 100 09/25/23 18:00 Oxygen Delivery Me thod Room Air 09/25/23 16:25 MDM - Abdominal Pain Lab Data 09/25/23 16:52 09/25/23 16:52 Labs/Radiology: Radiology Impressions Abdomen/Pelvis CT 09/25/23 17:28 IMPRESSION: 1. No evidence of acute abnormality in the abdomen or pelvis within limitations of a noncontrast exam. Laboratory Results WBC 11.56 10^3/uL (3.29-11.43) H 09/25/23 16:52 RBC 4.32 10^6/uL (3.85-5.65) 09/25/23 16:52 Hgb 13.40 g/dL (11.27-16.99) 09/25/23 16:52 Hct 40.9 % (36-47) 09/25/23 16:52 MCV 94.7 fl (85-98) 09/25/23 16:52 MCH 31.0 pg (27-33) 09/25/23 16:52 MCHC 32.8 g/dL (30-55) 09/25/23 16:52 RDW 12.7 % (12.1-15.1) 09/25/23 16:52 Plt Count 183 10^3/cmm (157-399) 09/25/23 16:52 MPV 10.0 fL (7.4-10.4) 09/25/23 16:52 Neut % (Auto) 72.2 % 09/25/23 16:52 Lymph % (Auto) 17.3 % 09/25/23 16:52 Gilchrist % (Auto) 8.5 % 09/25/23 16:52 Eos % (Auto) 1.5 % 09/25/23 16:52 Baso % (Auto) 0.2 % 09/25/23 16:52 Neut # (Auto) 8.35 10^3/uL (1.8-7.7) H 09/25/23 16:52 Lymph # (Auto) 2.0 10^3/uL (0.8-4.8) 09/25/23 16:52 Gilchrist # (Auto) 1.0 10^3/uL (0.2-0.9) H 09/25/23 16:52 Eos # (Auto) 0.2 10^3/uL (0.0-0.8) 09/25/23 16:52 Baso # (Auto) 0.0 10^3/uL (0.0-0.1) 09/25/23 16:52 Nucleated RBC % (auto) 0 % 09/25/23 16:52 Nucleated RBCs # 0.0 /100WBC 09/25/23 16:52 Sodium 138 mmol/L (136-145) 09/25/23 16:52 Potassium 3.9 mmol/L (3.5-5.1) 09/25/23 16:52 Chloride 105 mmol/L (98-107) 09/25/23 16:52 Carbon Dioxide 23 mmol/L (22-29) 09/25/23 16:52 Anion Gap 13.9 (5-19) 09/25/23 16:52 BUN 11 mg/dL (6-20) 09/25/23 16:52 Creatinine 0.5 mg/dL (0.5-0.9) 09/25/23 16:52 GFR Calculation 148.0 mL/min (90-130) H 09/25/23 16:52 Glucose 100 mg/dL (65-115) 09/25/23 16:52 Calculated Osmolality 285 mOsm/kg (285-295) 09/25/23 16:52 Calcium 9.2 mg/dL (8.5-10.5) 09/25/23 16:52 Total Bilirubin 0.4 mg/dL (0.15-1.2) 09/25/23 16:52 AST 12 U/L (0-32) 09/25/23 16:52 ALT 10 U/L (0-33) 09/25/23 16:52 Alkaline Phosphatase 81 U/L (35-105) 09/25/23 16:52 Total Protein 7.6 g/dL (6.6-8.7) 09/25/23 16:52 Albumin 3.9 g/dL (3.5-5.2) 09/25/23 16:52 Globulin 3.7 g/dL (1.3-4.6) 09/25/23 16:52 Lipase 38 U/L (13-60) 09/25/23 16:52 HCG, Qual Negative (Negative) 09/25/23 16:52 Urine Color Yellow (Yellow) 09/25/23 16:55 Urine Appearance Clear (CLEAR) 09/25/23 16:55 Urine pH 5 (5-7) 09/25/23 16:55 Ur Specific [place] 1.025 (1.005-1.030) 09/25/23 16:55 Urine Protein Neg (Negative) 09/25/23 16:55 Urine Glucose (UA) Norm (Normal) 09/25/23 16:55 Urine Ketones 1+ (Negative) H 09/25/23 16:55 Urine Blood 3+ (Negative) H 09/25/23 16:55 Urine Nitrate Negative (Negative) 09/25/23 16:55 Urine Bilirubin 1+ (Negative) H 09/25/23 16:55 Urine Urobilinogen 1 mg/dL (Negative) H 09/25/23 16:55 Ur Leukocyte Esterase Negative (Negative) 09/25/23 16:55 Urine RBC 0-4 /hpf (0-2) H 09/25/23 16:55 Urine WBC None /hpf (0-5) 09/25/23 16:55 Ur Squamous Epith Cells 0-4 /hpf (0-5) H 09/25/23 16:55 Amorphous Sediment Not Reportable 09/25/23 16:55 Urine Bacteria 1+ /hpf (NONE) H 09/25/23 16:55 Urine Mucus 2+ /hpf 09/25/23 16:55 Discharge Plan Discharge Patient Disposition: Home Clinical Impression: Cystitis Condition: Stable Prescriptions: New Macrobid 100 mg capsule 100 mg PO BID 5 Days Qty: 9 0RF Rx Instructions: must administer with a meal/food No Action doxycycline hyclate 100 mg tablet 100 mg PO BID 7 Days Qty: 14 0RF albuterol sulfate [Ventolin HFA] 90 mcg/actuation HFA aerosol inhaler 2 puff inhalation Q4H PRN (Reason: shortness of breath or wheezing) Qty: 8.5 0RF Discharge Orders: Discharge ED (Routine); Ordered 09/25/23 Ordered By: Praful Carranza Referrals: Christiane Byrne DO [Primary Care Provider] - Discharge Diet: Usual diet Discharge Activity: Increase activity as tolerated Patient Instructions: Urinary Tract Infection in Women (ED) Activity Restrictions/Additional Instructions: Drink plenty of fluids. Take antibiotic as directed. Follow-up with primary care in 3 days for recheck. Return to ED for new concerns. Coding Level of Care Code ED Lip Reading Teacher for Leonela Madrigal
[2023-09-25 16:59] VITALS: BP 114/73; PULSE 90; O2SAT 98
[2023-09-25 16:59] LABS: Basophils % 0.2 %; Eosinophils # 0.2 10^3/uL (0.0-0.8); Eosinophils % 1.5 %; Hematocrit 40.9 % (36-47); Lymphocytes % 17.3 %; Mean Corpuscular HGB Conc 32.8 g/dL (30-55); Mean Corpuscular Volume 94.7 fl (85-98); Monocytes % 8.5 %; Neutrophils # 8.35 10^3/uL (1.8-7.7); Neutrophils % 72.2 %; Nucleated Red Blood Cells % 0 %; Platelet Count 183 10^3/cmm (157-399); Red Blood Count 4.32 10^6/uL (3.85-5.65); Red Cell Distribution Width 12.7 % (12.1-15.1); White Blood Count 11.56 10^3/uL (3.29-11.43)
[2023-09-25 17:17] LABS: HCG, Serum Qual Negative (Negative)
[2023-09-25 17:18] LABS: Alanine Aminotransferase 10 U/L (0-33); Albumin Level 3.9 g/dL (3.5-5.2); Alkaline Phosphatase 81 U/L (35-105); Anion Gap 13.9 (5-19); Aspartate Amino Transferase 12 U/L (0-32); Blood Urea Nitrogen 11 mg/dL (6-20); Calcium 9.2 mg/dL (8.5-10.5); Carbon Dioxide 23 mmol/L (22-29); Chloride 105 mmol/L (98-107); Creatinine Clr Calc Pharmacy 171.2241; Globulin 3.7 g/dL (1.3-4.6); Glucose 100 mg/dL (65-115); Lipase 38 U/L (13-60); Osmolality Calculated 285 mOsm/kg (285-295); Potassium 3.9 mmol/L (3.5-5.1); Sodium 138 mmol/L (136-145); Total Bilirubin 0.4 mg/dL (0.15-1.2); Total Protein 7.6 g/dL (6.6-8.7)
[2023-09-25 17:18] LABS: Protein Urine Neg (Negative); Specific Gravity, Urine 1.025 (1.005-1.030); Urine Appearance Clear (CLEAR); Urine Color Yellow (Yellow); pH Urine 5 (5-7)
[2023-09-25 17:19] LABS: Add Urine Culture? No; Add Urine Microscopic? YES; Bacteria Urine 1+ /hpf; Bilirubin Urine 1+ (Negative); Blood Urine 3+ (Negative); Glucose Urine UA Norm (Normal); Ketones Urine 1+ (Negative); Leukocyte Esterase Urine Negative (Negative); Mucus Urine 2+ /hpf; Nitrate Urine Negative (Negative); RBC Urine 0-4 /hpf (0-2); Squamous Epithelial Cell Urine 0-4 /hpf (0-5); Urobilinogen Urine 1 mg/dL (Negative)
--- NOTE | 2023-09-25 17:28 | CTR_ITS ---
PROCEDURE INFORMATION: Exam: CT Abdomen And Pelvis Without Contrast Exam date and time: 09/25/2023 5:34 PM Age: 28 years old Clinical indication: Abdominal pain; Flank; Other: Bilateral; Additional info: Flank pain TECHNIQUE: Imaging protocol: Computed tomography of the abdomen and pelvis without contrast. Radiation optimization: All CT scans at this facility use at least one of these dose optimization techniques: automated exposure control; mA and/or kV adjustment per patient size (includes targeted exams where dose is matched to clinical indication); or iterative reconstruction. COMPARISON: CT abdomen pelvis w con* [id number] 10/15/2020 11:32 PM RADIATION DOSE METRICS: Total DLP (mGy-cm): 414.33 FINDINGS: Lungs: Subsegmental bibasilar atelectasis. The visualized lung bases are otherwise clear. Diaphragm: No evidence of diaphragmatic defect. Liver: Hepatic steatosis. No focal hepatic lesion within limitations of a noncontrast exam. Gallbladder and bile ducts: Gallbladder is unremarkable. No evidence of intra-hepatic or extra-hepatic biliary dilatation. Pancreas: Grossly unremarkable. Spleen: Grossly unremarkable. Adrenal glands: Grossly unremarkable. Kidneys and ureters: No gross renal parenchymal abnormality. No evidence of hydronephrosis or ureteral stone. Stomach and bowel: No evidence of bowel obstruction or perienteric inflammatory changes. Appendix: Normal appendix. Intraperitoneal space: No evidence of free air or fluid collection. Vasculature: No evidence of aneurysmal dilitation of abdominal aorta. Lymph nodes: No evidence of adenopathy. Urinary bladder: Grossly unremarkable. Reproductive: Grossly unremarkable. Bones/joints: No evidence of acute fracture or aggresive osseous lesion. Soft tissues: No evidence of fluid collection or hematoma in the superficial soft tissues. CT/CT kidney stone [id number] IMPRESSION: 1. No evidence of acute abnormality in the abdomen or pelvis within limitations of a noncontrast exam.
[2023-09-25] MEDS: sodium chloride 0.9% 1,000 ML 999 ML IV (17:57)
[2023-09-25 17:59] VITALS: BP 116/68; PULSE 85; O2SAT 95
[2023-09-25 18:00] VITALS: PULSE 85; O2SAT 100
[2023-09-25] MEDS: nitrofurantoin SR (BID) 100 mg Capsule PO (18:45)
[2023-09-25 18:54] VITALS: BP 105/22; PULSE 93; RESP 16; O2SAT 98
== END 2023-09-25 18:54 | disposition home or self-care (01) ==
PROVIDERS: Emergency Medicine; Emergency Provider Nurse Practitioner Family; PCP Family Medicine
DX: N30.90 Cystitis, unspecified without hematuria (principal); F17.290 Nicotine dependence, other tobacco product, uncomplicated
CPT/HCPCS: 36415; 74176; 80053; 81001; 83690; 84703; 85025; 99284; J7030

== ENCOUNTER 2023-09-27 15:58 | Emergency (ER) | payer SELFPAY ==
[2023-09-27 16:02] VITALS: BP 118/82; PULSE 95; RESP 16; TEMP 36.8; O2SAT 98; BMI 23.5
[2023-09-27 16:15] VITALS: BP 101/56; BP 108/56; BP 113/62; PULSE 102; PULSE 76; PULSE 90
--- NOTE | 2023-09-27 16:16 | W.ED.DIZZY ---
HPI - Dizziness General: Chief Complaint: Dizziness Stated Complaint: weakness, N, dizziness Time Seen by Provider: 09/27/23 16:10 History of Present Illness: HPI Narrative: 28-year-old female who presents to the emergency room with weakness and dizziness. She was seen here in the ER couple days ago with flank pain. She had fairly significant hematuria but a negative CT scan showed no kidney stones. She says she just feels really dizzy and lightheaded. She has not felt like she wants to eat anything. She has had some nausea. No further flank pain. Review of Systems Narrative: Constitutional symptoms: Negative except as documented in HPI. Skin symptoms: Negative except as documented in HPI. Eye symptoms: Negative except as documented in HPI. ENMT symptoms: Negative except as documented in HPI. Respiratory symptoms: Negative except as documented in HPI. Cardiovascular symptoms: Negative except as documented in HPI. Gastrointestinal symptoms: Negative except as documented in HPI. Genitourinary symptoms: Negative except as documented in HPI. Musculoskeletal symptoms: Negative except as documented in HPI. Neurologic symptoms: Negative except as documented in HPI. Psychiatric symptoms: Negative except as documented in HPI. Endocrine symptoms: Negative except as documented in HPI. PFS ED PFSH: Medical History (Updated 09/27/23 @ 17:15 by Susan Duval MD) Miscarriage No pertinent past medical history neghx: htn,dm,thyroid,dvt/pe PCP: None MDD (major depressive disorder), recurrent, in partial remission Major depressive disorder, recurrent, moderate Reported symptoms cry easily, sweating palms, fatigue, bad dreams, the mind goes blank, difficulty concentrating, trouble to make decisions, trouble remembering, thoughts hard to dismiss, trouble sleeping, easily annoyed and irritability, loss of sexual desire, loss of sexual functioning, nervous feeling, excessive worries and fears, excessive fears of crowds, no interests in things, feeling inferior, change in personality, work difficulties, thoughts of harming self. Frequent UTI Anxiety and depression Surgical History No pertinent past surgical history Family History Family/Other Cancer Maternal Uncle-- Leukemia Diabetes Maternal and Paternal aunts and uncles Mother Diabetes Father Diabetes Grandmother Diabetes Paternal Grandfather Diabetes Paternal Denies family history of Colon cancer Ovarian cancer Hyperlipidemia Breast cancer Hypertension Uterine cancer Thyroid disease Stroke Social History Smoking and tobacco/nicotine status: current every day tobacco/nicotine user (vapes with nicotine) Quit status (tobacco/nicotine): not considering quitting Second hand smoke exposure: No Substance/Drug Use: former Date of last use: thc and pain killers Female Reproductive History: Date of last menstrual period: 09/26/23 Course Vital Signs: Vital signs: Vital Signs Temperature 98.3 F 09/27/23 16:02 Pulse Rate 85 09/27/23 16:43 Respiratory Rate 16 09/27/23 16:43 Blood Pressure 110/71 09/27/23 16:43 Pulse Oximetry 98 09/27/23 16:43 Oxygen Delivery Me thod Room Air 09/27/23 16:43 MDM - Dizziness Medical Decision Making Dizziness, lightheadedness with a slight orthostasis. Still with urine symptoms. Will change her over to Omnice[employer]. Giving some fluids here. Lab Data 09/27/23 16:37 09/27/23 16:37 Laboratory Results WBC 7.99 10^3/uL (3.29-11.43) 09/27/23 16:37 RBC 4.64 10^6/uL (3.85-5.65) 09/27/23 16:37 Hgb 14.30 g/dL (11.27-16.99) 09/27/23 16:37 Hct 42.5 % (36-47) 09/27/23 16:37 MCV 91.6 fl (85-98) 09/27/23 16:37 MCH 30.8 pg (27-33) 09/27/23 16:37 MCHC 33.6 g/dL (30-55) 09/27/23 16:37 RDW 12.2 % (12.1-15.1) 09/27/23 16:37 Plt Count 251 10^3/cmm (157-399) 09/27/23 16:37 MPV 10.1 fL (7.4-10.4) 09/27/23 16:37 Neut % (Auto) 66.9 % 09/27/23 16:37 Lymph % (Auto) 23.8 % 09/27/23 16:37 [place] % (Auto) 7.3 % 09/27/23 16:37 Eos % (Auto) 1.4 % 09/27/23 16:37 Baso % (Auto) 0.1 % 09/27/23 16:37 Neut # (Auto) 5.35 10^3/uL (1.8-7.7) 09/27/23 16:37 Lymph # (Auto) 1.9 10^3/uL (0.8-4.8) 09/27/23 16:37 [place] # (Auto) 0.6 10^3/uL (0.2-0.9) 09/27/23 16:37 Eos # (Auto) 0.1 10^3/uL (0.0-0.8) 09/27/23 16:37 Baso # (Auto) 0.0 10^3/uL (0.0-0.1) 09/27/23 16:37 Nucleated RBC % (auto) 0 % 09/27/23 16:37 Nucleated RBCs # 0.0 /100WBC 09/27/23 16:37 Sodium 143 mmol/L (136-145) 09/27/23 16:37 Chloride 107 mmol/L (98-107) 09/27/23 16:37 Carbon Dioxide 25 mmol/L (22-29) 09/27/23 16:37 BUN 9 mg/dL (6-20) 09/27/23 16:37 Creatinine 0.5 mg/dL (0.5-0.9) 09/27/23 16:37 Glucose 89 mg/dL (65-115) 09/27/23 16:37 Calculated Osmolality 294 mOsm/kg (285-295) 09/27/23 16:37 Calcium 9.6 mg/dL (8.5-10.5) 09/27/23 16:37 Influenza Type A Ag negative (Negative) 09/27/23 16:35 Influenza Type B Ag negative (Negative) 09/27/23 16:35 SARS-CoV-2 Ag (Rapid) negative (Negative) 09/27/23 16:35 No radiology studies performed this visit Other Data Assessment and plan: -Normal saline bolus and IV Rocephin - Discharged home - Discussed plan with patient. Answered any questions. - Evaluation and treatment of this problem were appropriate in the emergency setting. Discharge Plan Discharge Patient Disposition: Home Clinical Impression: Cystitis, Dehydration Condition: Stable Prescriptions: New ondansetron 8 mg tablet,disintegrating 8 mg PO .q6 PRN (Reason: nausea and vomiting) Qty: 14 0RF cefdinir 300 mg capsule 300 mg PO BID 5 Days Qty: 10 0RF No Action nitrofurantoin monohyd/m-cryst [Macrobid] 100 mg capsule 100 mg PO BID 5 Days Qty: 9 0RF Rx Instructions: must administer with a meal/food Discharge Orders: Discharge ED (Routine); Ordered 09/27/23 Ordered By: Susan Duval Discharge Diet: Usual diet Discharge Activity: Resume usual activity Patient Instructions: Opioid Safety, Pain Management Activity Restrictions/Additional Instructions: You have been screened and evaluated and felt safe for discharge. Health conditions do change or evolve sometimes and as such it is important that you follow up with your Primary Doctor to be re checked, 3-5 days is a general good time frame for follow up. You are always welcome to return to the ED for re assessment if your symptoms are worsening or you have new concerns Coding Level of Care Code ED Director Of Compensation for Leonela Madrigal
[2023-09-27 16:43] VITALS: BP 110/71; PULSE 85; RESP 16; O2SAT 98
[2023-09-27 16:47] LABS: Basophils % 0.1 %; Eosinophils # 0.1 10^3/uL (0.0-0.8); Eosinophils % 1.4 %; Hematocrit 42.5 % (36-47); Lymphocytes # 1.9 10^3/uL (0.8-4.8); Lymphocytes % 23.8 %; Mean Corpuscular HGB Conc 33.6 g/dL (30-55); Mean Corpuscular Hemoglobin 30.8 pg (27-33); Mean Corpuscular Volume 91.6 fl (85-98); Mean Platelet Volume 10.1 fL (7.4-10.4); Monocytes # 0.6 10^3/uL (0.2-0.9); Monocytes % 7.3 %; Neutrophils # 5.35 10^3/uL (1.8-7.7); Neutrophils % 66.9 %; Nucleated Red Blood Cells % 0 %; Platelet Count 251 10^3/cmm (157-399); Red Blood Count 4.64 10^6/uL (3.85-5.65); Red Cell Distribution Width 12.2 % (12.1-15.1); White Blood Count 7.99 10^3/uL (3.29-11.43)
[2023-09-27] MEDS: sodium chloride 0.9% 1,000 ML 999 ML IV (16:48)
[2023-09-27] MEDS: cefTRIAXone 1,000 MG in sodium chloride 0.9% (plus) 50 ML 100 MG IV (16:48)
[2023-09-27 17:11] LABS: Blood Urea Nitrogen 9 mg/dL (6-20); Calcium 9.6 mg/dL (8.5-10.5); Carbon Dioxide 25 mmol/L (22-29); Chloride 107 mmol/L (98-107); Creatinine Clr Calc Pharmacy 171.2241; Glucose 89 mg/dL (65-115); Osmolality Calculated 294 mOsm/kg (285-295); Sodium 143 mmol/L (136-145)
[2023-09-27 17:20] LABS: Influenza A by IFA negative (Negative); Influenza B by IFA negative (Negative)
[2023-09-27 17:21] LABS: SARS Covid-2 Antigen negative (Negative)
[2023-09-27 17:29] LABS: Anion Gap 15.1 (5-19); Potassium 4.1 mmol/L (3.5-5.1)
[2023-09-27 18:02] VITALS: BP 128/71; PULSE 77; O2SAT 100
== END 2023-09-27 18:04 | disposition home or self-care (01) ==
PROVIDERS: Emergency Provider Emergency Medicine
DX: N30.90 Cystitis, unspecified without hematuria (principal); E86.0 Dehydration; Z11.52 Encounter for screening for COVID-19; F17.290 Nicotine dependence, other tobacco product, uncomplicated
CPT/HCPCS: 36415; 80048; 85025; 87426; 87804; 96365; 99284; J0696; J7030

== ENCOUNTER 2024-08-31 18:54 | Emergency (ER) | payer SELFPAY ==
[2024-08-31 19:00] VITALS: BP 132/74; PULSE 79; RESP 16; TEMP 36.6; O2SAT 98
--- NOTE | 2024-08-31 19:15 | XRR_ITS ---
PROCEDURE INFORMATION: Exam: XR Chest Exam date and time: 08/31/2024 8:51 PM Age: 29 years old Clinical indication: Shortness of breath; Additional info: SOB TECHNIQUE: Imaging protocol: Radiologic exam of the chest. Views: 1 view. COMPARISON: CT kidney stone [id number] 09/25/2023 5:34 PM FINDINGS: Lungs: Unremarkable. No consolidation. Pleural spaces: Unremarkable. No pleural effusion. No pneumothorax. Heart/Mediastinum: Unremarkable. No cardiomegaly. Bones/joints: Unremarkable. XR/XR chest 1V portable [id number] IMPRESSION: No acute findings.
[2024-08-31 20:25] LABS: Basophils % 0.2 %; Lymphocytes # 1.2 10^3/uL (0.8-4.8); Lymphocytes % 24.3 %; Mean Corpuscular HGB Conc 32.9 g/dL (30-55); Mean Corpuscular Hemoglobin 31.1 pg (27-33); Mean Corpuscular Volume 94.5 fl (85-98); Mean Platelet Volume 10.4 fL (7.4-10.4); Monocytes # 0.7 10^3/uL (0.2-0.9); Monocytes % 13.7 %; Neutrophils # 3.08 10^3/uL (1.8-7.7); Neutrophils % 61.4 %; Nucleated Red Blood Cells % 0 %; Platelet Count 181 10^3/cmm (157-399); Red Blood Count 4.34 10^6/uL (3.85-5.65); Red Cell Distribution Width 12.6 % (12.1-15.1); White Blood Count 5.02 10^3/uL (3.29-11.43)
[2024-08-31 20:39] LABS: Anion Gap 15.1 (5-19); Blood Urea Nitrogen 6 mg/dL (6-20); Calcium 9.2 mg/dL (8.5-10.5); Carbon Dioxide 22 mmol/L (22-29); Chloride 100 mmol/L (98-107); Creatinine Clr Calc Pharmacy 167.3098; Glomerular Filtration Rate 146.9 mL/min (90-130); Glucose 82 mg/dL (65-115); Osmolality Calculated 273 mOsm/kg (285-295); Potassium 4.1 mmol/L (3.5-5.1); Sodium 133 mmol/L (136-145)
[2024-08-31 20:51] VITALS: PULSE 76; O2SAT 95
[2024-08-31 21:00] LABS: HCG, Serum Qual Negative (Negative)
--- NOTE | 2024-08-31 21:01 | ED_ITS ---
HPI - URI/Sore Throat 2 General: Chief Complaint: Upper Respiratory Infection Stated Complaint: Flu Like, Fever Time Seen by Provider: 08/31/24 20:48 History of Present Illness: 29-year-old female comes in today with i llness x 4 days. Patient appears mildly unwell but not toxic. Respirations are even. Patient reports cough, body aches, urinary difficulty. Related Data Previous Rx's ?Medication ?Instructions ?Recorded ondansetron 8 mg disintegrating 8 mg PO .q6 PRN nausea and 09/27/23 tablet vomiting #14 tabs Allergies Allergy/AdvReac Type Severity Reaction Status Date / Time meloxicam Allergy swelling Verified 08/31/24 19:05 and redness Review of Systems 2 General: Reports: 10 or more systems reviewed and unremarkable except in HPI and below PFSH ED 2 PFSH: Medical History (Updated 08/31/24 @ 21:38 by MALENA Mckeon) Miscarriage No pertinent past medical history neghx: htn,dm,thyroid,dvt/pe PCP: None MDD (major depressive disorder), recurrent, in partial remission Major depressive disorder, recurrent, moderate Reported symptoms cry easily, sweating palms, fatigue, bad dreams, the mind goes blank, difficulty concentrating, trouble to make decisions, trouble remembering, thoughts hard to dismiss, trouble sleeping, easily annoyed and irritability, loss of sexual desire, loss of sexual functioning, nervous feeling, excessive worries and fears, excessive fears of crowds, no interests in things, feeling inferior, change in personality, work difficulties, thoughts of harming self. Frequent UTI Anxiety and depression Surgical History No pertinent past surgical history Family History Family/Other Cancer Maternal Uncle-- Leukemia Diabetes Maternal and Paternal aunts and uncles Mother Diabetes Father Diabetes Grandmother Diabetes Paternal Grandfather Diabetes Paternal Denies family history of Colon cancer Ovarian cancer Hyperlipidemia Breast cancer Hypertension Uterine cancer Thyroid disease Stroke Social History Smoking and tobacco/nicotine status: current every day tobacco/nicotine user (vapes with nicotine) Quit status (tobacco/nicotine): not considering quitting Second hand smoke exposure: No Substance/Drug Use: former Date of last use: thc and pain killers Physical Exam 2 Const: COMMON NORMALS: alert HENMT: COMMON NORMALS: normocephalic HEAD & SCALP: normocephalic Neck/C-Spine: COMMON NORMALS: full ROM Resp: COMMON NORMALS: normal respiratory effort Cardio: COMMON NORMALS: regular rate and regular rhythm RATE: regular rate RHYTHM: regular rhythm GI: COMMON NORMALS: non-tender : COMMON NORMALS: Yes no CVA tenderness BLADDER/KIDNEY EXAM: Yes no CVA tenderness Back/Pelvis: COMMON NORMALS: no CVA tenderness Extremity: COMMON NORMALS: full ROM Neuro: SENSORIUM/ORIENTATION: Yes alert Skin: COMMON NORMALS: turgor normal GENERAL SKIN EXAM: turgor normal Course 2 Vital Signs: Vital signs: Vital Signs Temperature 97.9 F 08/31/24 19:00 Pulse Rate 76 08/31/24 20:51 Respiratory Rate 16 08/31/24 19:00 Blood Pressure 132/74 08/31/24 19:00 Pulse Oximetry 95 08/31/24 20:51 MDM - URI/Sore Throat Medical Decision Making 29-year-old female comes in today for complaints of illness since Tuesday. Patient appears nontoxic. Patient appears mildly unwell. Patient does report some kidney pain. Evaluation notes no abdominal tenderness. Lungs are clear to auscultation. Skin is warm and dry. Vital signs are normal. Differential diagnosis includes not limited to influenza, dehydration, viral syndrome, urinary tract infection. Patient tested positive for influenza A. Chest x-ray was normal. Patient had some mild dehydration as noted by sodium 133. Patient was given 1 L of normal saline and discharged home with instructions for rehydration and follow-up. Patient reported understanding. Lab Data 08/31/24 20:17 08/31/24 20:17 Radiology Impressions Chest X-Ray 08/31/24 19:15 IMPRESSION: No acute findings. Laboratory Results WBC 5.02 10^3/uL (3.29-11.43) 08/31/24 20:17 RBC 4.34 10^6/uL (3.85-5.65) 08/31/24 20:17 Hgb 13.50 g/dL (11.27-16.99) 08/31/24 20:17 Hct 41.0 % (36-47) 08/31/24 20:17 MCV 94.5 fl (85-98) 08/31/24 20:17 MCH 31.1 pg (27-33) 08/31/24 20:17 MCHC 32.9 g/dL (30-55) 08/31/24 20:17 RDW 12.6 % (12.1-15.1) 08/31/24 20:17 Plt Count 181 10^3/cmm (157-399) 08/31/24 20:17 MPV 10.4 fL (7.4-10.4) 08/31/24 20:17 Neut % (Auto) 61.4 % 08/31/24 20:17 Lymph % (Auto) 24.3 % 08/31/24 20:17 [place] % (Auto) 13.7 % 08/31/24 20:17 Eos % (Auto) 0.0 % 08/31/24 20:17 Baso % (Auto) 0.2 % 08/31/24 20:17 Neut # (Auto) 3.08 10^3/uL (1.8-7.7) 08/31/24 20:17 Lymph # (Auto) 1.2 10^3/uL (0.8-4.8) 08/31/24 20:17 [place] # (Auto) 0.7 10^3/uL (0.2-0.9) 08/31/24 20:17 Eos # (Auto) 0.0 10^3/uL (0.0-0.8) 08/31/24 20:17 Baso # (Auto) 0.0 10^3/uL (0.0-0.1) 08/31/24 20:17 Nucleated RBC % (auto) 0 % 08/31/24 20: Nucleated RBCs # 0.0 /100WBC 08/31/24 20:17 Sodium 133 mmol/L (136-145) L 08/31/24 20:17 Potassium 4.1 mmol/L (3.5-5.1) 08/31/24 20:17 Chloride 100 mmol/L (98-107) 08/31/24 20:17 Carbon Dioxide 22 mmol/L (22-29) 08/31/24 20:17 Anion Gap 15.1 (5-19) 08/31/24 20:17 BUN 6 mg/dL (6-20) 08/31/24 20:17 Creatinine 0.5 mg/dL (0.5-0.9) 08/31/24 20:17 GFR Calculation 146.9 mL/min (90-130) H 08/31/24 20:17 Glucose 82 mg/dL (65-115) 08/31/24 20:17 Calculated Osmolality 273 mOsm/kg (285-295) L 08/31/24 20:17 Calcium 9.2 mg/dL (8.5-10.5) 08/31/24 20:17 HCG, Qual Negative (Negative) 08/31/24 20:17 Influenza A (PCR) Positive (Negative) 08/31/24 19:10 Influenza Type B (PCR) Negative (Negative) 08/31/24 19:10 RSV (PCR) Negative (Negative) 08/31/24 19:10 SARS-CoV-2 (PCR) Negative (Negative) 08/31/24 19:10 All radiology interpretation(s) finalized by discharge Discharge Plan Discharge Patient Disposition: Home Clinical Impression: Influenza, Dehydration Condition: Stable Prescriptions: No Action ondansetron 8 mg tablet,disintegrating 8 mg PO .q6 PRN (Reason: nausea and vomiting) Qty: 14 0RF Discharge Orders: Discharge ED (Routine); Ordered 08/31/24 Ordered By: Praful Carranza Discharge Diet: Usual diet Discharge Activity: Increase activity as tolerated Patient Instructions: Influenza (ED) Activity Restrictions/Additional Instructions: Home and rest. Drink plenty of water and fluids. Continue with acetaminophen and ibuprofen to control fever. Most often the flu runs its course within 3 to 5 days. Follow-up with primary care as needed. Return to ED for new concerns. Stand Alone Forms: Work/School Release Print Language: Greenlandic Coding Level of Care Code ED Sales Agent Trading Stamps for Leonela Madrigal
[2024-08-31 21:29] LABS: Influenza A POSITIVE (Negative); Influenza B NEGATIVE (Negative); Respiratory Syncytial Virus Ce NEGATIVE (Negative); SARS-CoV-2 PCR NEGATIVE (Negative)
[2024-08-31 21:53] LABS: Bilirubin Urine Negative (Negative); Blood Urine Negative (Negative); Glucose Urine UA Negative (Normal); Leukocyte Esterase Urine Negative (Negative); Nitrate Urine Negative (Negative); pH Urine 5.5 (5-7)
[2024-08-31] MEDS: sodium chloride 0.9% 1,000 ML 999 ML IV (22:00)
[2024-08-31 22:02] LABS: Add Urine Microscopic? YES; Bacteria Urine None Seen /hpf; Hyaline Casts Urine 7.01 /lpf; Universal Test for UA Present (0); WBC Urine 0-5 /hpf (0-5)
[2024-08-31 22:13] LABS: Add Urine Culture? No; Ketones Urine 2+ (Negative); Mucus Urine 4+ /hpf; Protein Urine 1+ (Negative); Specific Gravity, Urine 1.034 (1.005-1.030); Squamous Epithelial Cell Urine >100 /hpf (0-5); Urine Appearance Cloudy (CLEAR); Urine Color Dark Yellow (Yellow)
== END 2024-08-31 23:20 | disposition home or self-care (01) ==
PROVIDERS: Emergency Medicine; Emergency Provider Nurse Practitioner Family
DX: J10.1 Influenza due to other identified influenza virus with other respiratory manifestations (principal); Z11.52 Encounter for screening for COVID-19; E86.0 Dehydration; F17.290 Nicotine dependence, other tobacco product, uncomplicated
CPT/HCPCS: 36415; 71045; 80048; 81001; 84703; 85025; 87637; 99284; J7030